=== PATIENT | female | born 1980 | race African-American/Black ===

== ENCOUNTER 2019-04-22 15:26 | Inpatient (IN) | payer OTHER ==
[2019-04-22 20:43] VITALS: BMI 27.1
--- NOTE | 2019-04-22 22:00 | HP ---
CIWA Score - Admission Criteria [facility] Guidelines: Admission for Medically Managed Detox: Requires at least one of the followin. CIWA greater than 12 2. Seizures within the past 24 hours 3. Delirium tremens within the past 24 hours 4. Hallucinations within the past 24 hours 5. Acute intervention needed for co occurring medical disorder 6. Acute intervention needed for co occurring psychiatric disorder 7. Severe withdrawal that cannot be handled at a lower level of care (continued vomiting, continued diarrhea, abnormal vital signs) requiring intravenous medication and/or fluids 8. Admission ROS S - HPI Chief Complaint: alcohol and marijuana rehabilitation Allergies/Adverse Reactions: Allergies Allergy/AdvReac Type Severity Reaction Status Date / Time Fish Containing Products Allergy Intermediate Hives Verified 04/22/19 20:37 History of Present Illness: 38 yo female, homeless, with hx of alcohol, moly and cannabis dependence is here seeking rehabilitation, patient reports completed detox two weeks ago in [place]. PMHX: anemia. Psych: depression. Denies SI/HI. Reports remote hx of ETOH blackouts with last episode two weeks ago. Exam Limitations: No Limitations - Ebola screening Have you traveled outside of the country in the last 21 days: No (N) Have you had contact with anyone from an Ebola affected area: No Do you have a fever: No - Review of Systems Constitutional: Weakness, Unintentional Wgt. Loss EENT: reports: No Symptoms Reported Respiratory: reports: No Symptoms reported Cardiac: reports: No Symptoms Reported GI: reports: No Symptoms Reported : reports: No Symptoms Reported Musculoskeletal: reports: No Symptoms Reported Integumentary: reports: Other (boil on left under arm) Neuro: reports: No Symptoms reported Endocrine: reports: Increased Thirst Hematology: reports: Anemia Psychiatric: reports: Depressed (, brother and father) Other Systems: Reviewed and Negative Patient History - Patient Medical History Hx Anemia: Yes Hx Asthma: No Hx Chronic Obstructive Pulmonary Disease (COPD): No Hx Cancer: No Hx Cardiac Disorders: No Hx Congestive Heart Failure: No Hx Hypertension: No Hx Hypercholesterolemia: No Hx Pacemaker: No HX Cerebrovascular Accident: No Hx Seizures: No Hx Dementia: No Hx Diabetes: No Hx Gastrointestinal Disorders: No Hx Liver Disease: No Hx Genitourinary Disorders: No Hx Sexually Transmitted Disorders: No Hx Renal Disease (ESRD): No Hx Thyroid Disease: No Hx Human Immunodeficiency Virus (HIV): No Hx Hepatitis C: No Hx Depression: Yes Hx Suicide Attempt: No Hx Bipolar Disorder: No Hx Schizophrenia: No - Patient Surgical History Past Surgical History: No - PPD History Previous Implant?: No PPD to be Administered?: Yes - Reproductive History Patient is a Female of Child Bearing Age (11 -55 yrs old): Yes Last Menstrual Period: 04/20/19 Patient : No - Smoking Cessation Smoking history: Current every day smoker Have you smoked in the past 12 months: Yes Aproximately how many cigarettes per day: 60 Hx Chewing Tobacco Use: No Initiated information on smoking cessation: Yes 'Breaking Loose' booklet given: 04/22/19 - Substance & Tx. History Hx Alcohol Use: Yes Hx Substance Use: Yes Substance Use Type: Alcohol, Marijuana Hx Substance Use Treatment: Yes - Substances abused Alcohol Substance route: Oral Frequency: Daily Amount used: 1 liter of Hennesy/day Age of first use: 22 Date of last use: 04/20/19 Marijuana/Hashish Substance route: Smoking Frequency: Daily Amount used: $60 Age of first use: 18 Date of last use: 04/20/19 Other Other (specify): moly Substance route: Oral Frequency: Daily Amount used: $25 Age of first use: 37 Date of last use: 04/22/19 Family Disease History - Family Disease History Family Disease History: Other: Father (, margi ) Admission [facility] - Vital Signs Vital Signs: Vital Signs - 24 hr 04/22/19 20:39 Temperature 97.8 F Pulse Rate 89 Respiratory 18 Rate Blood Pressure 120/86 - Physical General Appearance: Yes: Disheveled, Anxious HEENTM: Yes: EOMI, Hearing grossly Normal, Normal ENT Inspection, Normocephalic , Normal Voice, PRINCE, Pharynx Normal, Tm's normal, Other (poor dentation) Respiratory: Yes: Chest Non-Tender, Lungs Clear, Normal Breath Sounds, No Respiratory Distress, No Accessory Muscle Use Neck: Yes: Within Normal Limits Breast: Yes: Within Normal Limits Cardiology: Yes: Regular Rhythm, Regular Rate Abdominal: Yes: Normal Bowel Sounds, Non Tender, Flat, Soft Genitourinary: Yes: Within Normal Limits Back: Yes: Normal Inspection Musculoskeletal: Yes: full range of Motion, Gait Steady, Pelvis Stable Extremities: Yes: Normal Capillary Refill, Normal Inspection, Normal Range of Motion, Non-Tender Neurological: Yes: book jogger II-XII NML intact, Fully Oriented, Alert, Motor Strength 5/5, Depressed Affect Integumentary: Yes: Normal Color, Dry, Warm Lymphatic: Yes: Within Normal Limits - Diagnostic (1) Uncomplicated alcohol dependence Current Visit: Yes Status: Acute (2) Marijuana dependence Current Visit: Yes Status: Acute (3) Anemia Current Visit: Yes Status: Chronic Qualifiers: Anemia type: unspecified type Qualified Code(s): D64.9 - Anemia, unspecified (4) Depression Current Visit: Yes Status: Acute Qualifiers: Depression Type: unspecified Qualified Code(s): F32.9 - Major depressive disorder, single episode, unspecified Comment: on seroquel Breathalyzer - Breathalyzer Breathalyzer: 0 Urine Drug Screen - Test Device Lot number: [id number] Expiration date: 07/03/20 - Control Is test valid?: Yes - Results Drug screen NEGATIVE: No Urine drug screen results: THC-Marijuana Inpatient Rehab Admission - Rehab Decision to Admit Inpatient rehab admission?: Yes - Initial Determination Are CD services needed?: Yes Free of communicable disease: Yes Not in need of hospitalization: Yes - Rehab Admission Criteria Previous failed treatment: Yes Poor recovery environment: Yes Comorbidities: Yes Lacks judgement: Yes Patient is meeting Inpatient Rehab admission criteria:: Yes
[2019-04-22] MEDS ORDERED: MAGNESIUM HYDROX 2400MG/30ML ORAL SUSPENSION 30 ML CUP PO PRN (22:07)
[2019-04-22] MEDS ORDERED: MENTHOL/PHENOL 1 EACH UD MM PRN (22:07)
[2019-04-22] MEDS ORDERED: LOPERAMIDE HCL 2 MG CAPSULE PO PRN (22:07)
[2019-04-22] MEDS ORDERED: NICOTINE POLACRILEX 4 MG GUM BC PRN (22:07)
[2019-04-22] MEDS ORDERED: P-EPHED 60MG/TRIPROLIDI 2.5MG TABLET PO PRN (22:07)
[2019-04-22] MEDS ORDERED: MAGNESIUM CITRATE 300 ML BOTTLE PO PRN (22:07)
[2019-04-22] MEDS ORDERED: MAG HYDROX/AL HYDROX/SIMETH 30 ML UNIT-DOSE CUP PO PRN (22:07)
[2019-04-22] MEDS ORDERED: ACETAMINOPHEN 325 MG TABLET (FP) PO PRN (22:07)
[2019-04-22] MEDS ORDERED: guaiFENesin 200 MG/10 ML 10 ML UNIT-DOSE CUPS PO PRN (22:07)
[2019-04-22] MEDS ORDERED: TUBERCULIN PPD 5 TU/0.1ML VIAL ID ONE ×2 (23:35→23:41)
[2019-04-23 05:53] LABS: EPI CELLS 6.1 /HPF (0-5/HPF); HYALINE CASTS 9 /lpf (0-8); URINE APPEARANCE TURBID; URINE BACTERIA 64.5 /hpf (NEGATIVE); URINE BILIRUBIN NEGATIVE (NEGATIVE); URINE COLOR YELLOW; URINE GLUCOSE (UA) NEGATIVE (NEGATIVE); URINE KETONE NEGATIVE (NEGATIVE); URINE LEUK ESTERASE 1+ (NEGATIVE); URINE NITRITE NEGATIVE (NEGATIVE); URINE PROTEIN 1+ (NEGATIVE); URINE WBC 14 /hpf (0-5)
[2019-04-23 06:28] LABS: URINE RBC 163.4 /hpf (0-4); YEAST NEGATIVE (NEGATIVE)
--- NOTE | 2019-04-23 10:27 | CONSULT ---
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 This is patient's first admission to rehab at [facility]. Patient admitted to for alcohol and christa dependence. Substance Abuse History: Smoking Cessation. Smoking history: Current every day smoker. Have you smoked in the past 12 months: Yes. Aproximately how many cigarettes per day: 60. Hx Chewing Tobacco Use: No. Initiated information on smoking cessation: Yes. 'Breaking Loose' booklet given: 04/22/19. - Substance & Tx. History. Hx Alcohol Use: Yes. Hx Substance Use: Yes. Substance Use Type : Alcohol, Marijuana. Hx Substance Use Treatment: Yes. - Substances abused. * * Alcohol. Substance route: Oral. Frequency: Daily. Amount used: 1 liter of Hennesy/day. Age of first use: 22. Date of last use: 04/20/19. Marijuana/ Hashish. Substance route: Smoking. Frequency: Daily. Amount used: $60. Age of first use: 18. Date of last use: 04/20/19. Other. Other (specify): moly. Substance route: Oral. Frequency: Daily. Amount used: $25. Age of first use: 37. Date of last use: 04/22/19 Medical History: anemia Psychiatric History: Patient's first psychiatric contact was last month while at [facility] in [place]. States she was prescribed seroquel 150mg for mood stabilization and insomnia but has not accepted medication since discharge from rehab two weeks ago. Patient presents as guarded , tearful and sad. She recently lost her job and place of residence. She denies thoughts or urges to hurt self or others. Mentions her two children as are her protective factors. Patient agreeable in resuming seroquel. Physical/Sexual Abuse/Trauma History: denies. Mental Status Exam - Mental Status Exam Alert and Oriented to: Time, Place, Person Cognitive Function: Good Patient Appearance: Well Groomed Mood: Sad Affect: Mood Congruent Patient Behavior: Guarded, Cooperative Speech Pattern: Clear Voice Loudness: Moderately Soft/Quiet Thought Process: Goal Oriented Thought Disorder: Not Present Hallucinations: Denies Suicidal Ideation: Denies Homicidal Ideation: Denies Insight/Judgement: Poor Sleep: Poorly Appetite: Fair Muscle strength/Tone: Normal Gait/Station: Normal Psychiatric Findings - Problem List ([place] 1, 2,3) (1) Depressive disorder Current Visit: Yes Status: Acute (2) Marijuana dependence Current Visit: Yes Status: Acute (3) Uncomplicated alcohol dependence Current Visit: Yes Status: Acute - Initial Treatment Plan Initial Treatment Plan: Psychoieducation provided. Detoxification in progress. Will order Seroquel 100mg HS. Benefits and side effects discussed. Verbal consent given.
[2019-04-23] MEDS: NICOTINE 21 MG/24 HOURS TOPICAL PATCH TD SCH (10:28)
[2019-04-23] MEDS: PRENATAL VITAMINS W/ FOLIC ACID TABLET (FP) PO SCH (10:28)
[2019-04-23 11:39] LABS: HEMATOCRIT 36.8 % (32.4-45.2); HEMOGLOBIN 11.9 GM/dL (10.7-15.3); MCH 27.2 pg (25.7-33.7); MCHC 32.3 g/dl (32.0-36.0); MEAN CELL VOLUME 84.2 fl (80-96); MEAN PLT VOLUME 6.9 fl (7.5-11.1); PLATELET COUNT 326 K/MM3 (134-434); RBC 4.37 M/mm3 (3.60-5.2); RDW 14.1 % (11.6-15.6); WHITE BLOOD COUNT 3.5 K/mm3 (4.0-10.0)
[2019-04-23 11:53] LABS: ALBUMIN 3.3 g/dl (3.4-5.0); BILIRUBIN,TOTAL 0.2 mg/dL (0.2-1); BLOOD UREA NITROGEN 7.4 mg/dL (7-18); CALCIUM 8.6 mg/dL (8.5-10.1); CREATININE 0.8 mg/dL (0.55-1.3); POTASSIUM 3.9 mmol/L (3.5-5.1); TOT PROT 7.7 g/dl (6.4-8.2)
[2019-04-23] MEDS: QUEtiapine FUMARATE 100 MG TABLET (FP) PO SCH (23:24)
[2019-04-23] MEDS: THIAMINE HCL 100 MG TABLET (FP) PO SCH (23:24)
[2019-04-24] MEDS: NICOTINE 21 MG/24 HOURS TOPICAL PATCH TD SCH (09:49)
[2019-04-24] MEDS: PRENATAL VITAMINS W/ FOLIC ACID TABLET (FP) PO SCH (09:49)
[2019-04-24] MEDS: hydrOXYzine PAMOATE 50 MG CAPSULE (FP) PO PRN ×2 (11:09→21:14)
[2019-04-24] MEDS: THIAMINE HCL 100 MG TABLET (FP) PO SCH (21:12)
[2019-04-24] MEDS: QUEtiapine FUMARATE 100 MG TABLET (FP) PO SCH (21:12)
[2019-04-24] MEDS: MELATONIN 5 MG TABLETS PO PRN (21:13)
[2019-04-25] MEDS ORDERED: PT OWN MED DRAWER 7, Y5N ONE (08:17)
[2019-04-25] MEDS: NICOTINE 21 MG/24 HOURS TOPICAL PATCH TD SCH (09:42)
[2019-04-25] MEDS: PRENATAL VITAMINS W/ FOLIC ACID TABLET (FP) PO SCH (09:42)
--- NOTE | 2019-04-25 13:01 | EKG ---
Test Reason : Blood Pressure : / mmHG Vent. Rate : 066 BPM Atrial Rate : 066 BPM P-R Int : 188 ms QRS Dur : 084 ms QT Int : 390 ms P-R-T Axes : 056 023 032 degrees QTc Int : 408 ms NORMAL SINUS RHYTHM WITH SINUS ARRHYTHMIA NORMAL ECG NO PREVIOUS ECGS AVAILABLE Confirmed by JULIETA MENDOZA MD ([id number]) on 04/25/2019 1:01:27 PM Referred By: Jc JUAREZ Confirmed By:JULIETA MENDOZA MD
[2019-04-25] MEDS: hydrOXYzine PAMOATE 50 MG CAPSULE (FP) PO PRN (18:31)
[2019-04-25] MEDS: QUEtiapine FUMARATE 100 MG TABLET (FP) PO SCH (21:17)
[2019-04-25] MEDS: MELATONIN 5 MG TABLETS PO PRN (21:17)
[2019-04-25] MEDS: THIAMINE HCL 100 MG TABLET (FP) PO SCH (21:18)
[2019-04-26] MEDS: PRENATAL VITAMINS W/ FOLIC ACID TABLET (FP) PO SCH (09:31)
[2019-04-26] MEDS: hydrOXYzine PAMOATE 50 MG CAPSULE (FP) PO PRN ×2 (09:32→21:20)
[2019-04-26] MEDS: NICOTINE 21 MG/24 HOURS TOPICAL PATCH TD SCH (09:33)
--- NOTE | 2019-04-26 09:36 | PN ---
[facility] Progress Note Note: Laboratory Tests 04/22/19 04/23/19 04/23/19 21:51 04:00 09:20 WBC 3.5 L RBC 4.37 Hgb 11.9 Hct 36.8 MCV 84.2 MCH 27.2 MCHC 32.3 RDW 14.1 Plt Count 326 MPV 6.9 L Sodium Potassium Chloride Carbon Dioxide Anion Gap BUN Creatinine Est GFR (CKD-EPI)AfAm Est GFR (CKD-EPI)NonAf Random Glucose Calcium Total Bilirubin AST ALT Alkaline Phosphatase Total Protein Albumin Urine Color Yellow Urine Appearance Turbid Urine pH 5.0 Ur Specific [place] 1.017 Urine Protein 1+ H Urine Glucose (UA) Negative Urine Ketones Negative Urine Blood 3+ H Urine Nitrite Negative Urine Bilirubin Negative Urine Urobilinogen 1.0 Ur Leukocyte Esterase 1+ H Urine WBC (Auto) 14 Urine RBC (Auto) 163.4 Urine Casts (Auto) 9 U Epithel Cells (Auto) 6.1 Urine Bacteria (Auto) 64.5 Urine Yeast (Auto) Negative POC Urine HCG, Qual Negative RPR Titer 04/23/19 04/23/19 09:20 09:20 WBC RBC Hgb Hct MCV MCH MCHC RDW Plt Count MPV Sodium 138 Potassium 3.9 Chloride 107 Carbon Dioxide 27 Anion Gap 4 L BUN 7.4 Creatinine 0.8 Est GFR (CKD-EPI)AfAm 109.16 Est GFR (CKD-EPI)NonAf 94.18 Random Glucose 82 Calcium 8.6 Total Bilirubin 0.2 AST 12 L ALT 20 Alkaline Phosphatase 68 Total Protein 7.7 Albumin 3.3 L Urine Color Urine Appearance Urine pH Ur Specific [place] Urine Protein Urine Glucose (UA) Urine Ketones Urine Blood Urine Nitrite Urine Bilirubin Urine Urobilinogen Ur Leukocyte Esterase Urine WBC (Auto) Urine RBC (Auto) Urine Casts (Auto) U Epithel Cells (Auto) Urine Bacteria (Auto) Urine Yeast (Auto) POC Urine HCG, Qual RPR Titer Nonreactive LABS NOTED. INCREASE PO FLUIDS
[2019-04-26] MEDS: IBUPROFEN 400 MG TABLET (FP) PO PRN (17:56)
[2019-04-26] MEDS: QUEtiapine FUMARATE 100 MG TABLET (FP) PO SCH (21:18)
[2019-04-26] MEDS: THIAMINE HCL 100 MG TABLET (FP) PO SCH (21:18)
[2019-04-26] MEDS: MELATONIN 5 MG TABLETS PO PRN (21:18)
[2019-04-26] MEDS ORDERED: PT OWN MED DRAWER 7, Y5N ONE (23:21)
[2019-04-26] MEDS ORDERED: INSULIN (NOVOLOG) ASPART 100 UNITS/ML 10ML VIAL ONE (23:24)
[2019-04-26] MEDS ORDERED: TUBERCULIN PPD 5 TU/0.1ML VIAL ID ONE (23:25)
[2019-04-27] MEDS: IBUPROFEN 400 MG TABLET (FP) PO PRN (08:54)
[2019-04-27] MEDS: hydrOXYzine PAMOATE 50 MG CAPSULE (FP) PO PRN ×2 (08:57→21:12)
[2019-04-27] MEDS: PRENATAL VITAMINS W/ FOLIC ACID TABLET (FP) PO SCH (09:27)
[2019-04-27] MEDS: NICOTINE 21 MG/24 HOURS TOPICAL PATCH TD SCH (09:27)
--- NOTE | 2019-04-27 11:37 | PN ---
S Progress Note (SOAP) Subjective: Patient with abscess in right axillae. Objective: Right axilla swollen, draining clear-yellow fluid. Tender to the touch. 04/27/19 11:35 Assessment: Right axillae abscess. 04/27/19 11:36 Plan: Bactrim ordered. Culture ordered. Dressing changes ordered.
[2019-04-27] MEDS: BACITRACIN 15 GM TUBE TOPICAL OINTMENT TP SCH (15:03)
[2019-04-27] MEDS ORDERED: IBUPROFEN 600 MG TABLET (FP) PO PRN (16:06)
[2019-04-27] MEDS: COLLOIDAL OATMEAL 1 BAR EACH TP PRN (16:31)
[2019-04-27] MEDS: CEPHALEXIN MONOHYDRATE 500 MG CAPSULE (UD) PO SCH (21:12)
[2019-04-27] MEDS: MELATONIN 5 MG TABLETS PO PRN (21:12)
[2019-04-27] MEDS: QUEtiapine FUMARATE 100 MG TABLET (FP) PO SCH (21:12)
[2019-04-27] MEDS: THIAMINE HCL 100 MG TABLET (FP) PO SCH (21:12)
[2019-04-28] MEDS ORDERED: PT OWN MED DRAWER 7, Y5N ONE (08:45)
[2019-04-28] MEDS: hydrOXYzine PAMOATE 50 MG CAPSULE (FP) PO PRN (08:46)
[2019-04-28] MEDS: PRENATAL VITAMINS W/ FOLIC ACID TABLET (FP) PO SCH (09:36)
[2019-04-28] MEDS: CEPHALEXIN MONOHYDRATE 500 MG CAPSULE (UD) PO SCH ×2 (09:36→21:09)
[2019-04-28] MEDS: NICOTINE 21 MG/24 HOURS TOPICAL PATCH TD SCH (09:36)
[2019-04-28] MEDS: BACITRACIN 15 GM TUBE TOPICAL OINTMENT TP SCH (09:37)
[2019-04-28] MEDS ORDERED: SULFAMETHOXAZOLE/TRIMETHOPRIM 800MG/160MG D.S. TABLET PO SCH (10:00)
--- NOTE | 2019-04-28 17:36 | PN ---
Psychiatric Progress Note Vital Signs: Vital Signs Period Temp Pulse Resp BP Sys/Palmer Pulse Ox Last 24 Hr 97.2 F 76 18-18 102/71 Date of Session: 04/28/19 Chief Complaint:: " I still feel sad and irritable" HPI: Patient presents with a sad affect. Reports missing her son and is contemplating if she should sign out AMA. ROS: Patient coherent, alert and oriented X3. Current Medications: Active Medications Generic Name Dose Route Start Last Admin Trade Name Freq PRN Reason Stop Dose Admin Acetaminophen 650 mg 04/22/19 22:07 Tylenol - PO Q4H PRN FEVER Al Hydroxide/Mg Hydroxide 30 ml 04/22/19 22:07 04/26/19 07:24 Mylanta Oral Suspension - PO 30 ml Q6H PRN Administration DYSPEPSIA Bacitracin 1 applic 04/27/19 11:45 04/28/19 09:37 Bacitracin - TP Not Given DAILY FRANK Cephalexin HCl 500 mg 04/27/19 22:00 04/28/19 09:36 Keflex - PO 500 mg BID FRANK Administration Colloidal Oatmeal 1 applic 04/25/19 20:59 04/27/19 16:31 Aveeno Soap - TP 1 bar DAILY PRN Administration HYGEINE Eucalyptus/Menthol/Phenol/Sorbitol 1 each 04/22/19 22:07 Cepastat Lozenge - MM Q4H PRN SORE THROAT Guaifenesin 10 ml 04/22/19 22:07 Robitussin - PO Q6H PRN COUGH Hydroxyzine Pamoate 50 mg 04/22/19 22:07 04/28/19 08:46 Vistaril - PO 50 mg Q4H PRN Administration AGITATION Ibuprofen 600 mg 04/27/19 16:08 Motrin - PO Q4H PRN PAIN LEVEL 4 - 6 Loperamide HCl 4 mg 04/22/19 22:07 Imodium - PO Q6H PRN DIARRHEA Magnesium Citrate 300 ml 04/22/19 22:07 Citroma - PO Q48H PRN CONSTIPATION Magnesium Hydroxide 30 ml 04/22/19 22:07 Milk Of Magnesia - PO DAILY PRN CONSTIPATION Melatonin 5 mg 04/22/19 22:00 04/27/19 21:12 Melatonin PO 5 mg HS PRN Administration INSOMNIA Nicotine 21 mg 04/23/19 10:00 04/28/19 09:36 Nicoderm Patch - TD Not Given DAILY FRANK Nicotine Polacrilex 4 mg 04/22/19 22:07 Nicorette Gum - BC Q2H PRN NICOTINE REPLACEMENT RX Multivit/Folic Acid/Iron 1 tab 04/23/19 10:00 04/28/19 09:36 Vitamins (Sjr) - PO 1 tab DAILY FRANK Administration Pseudoephedrine/Triprolidine 1 combo 04/22/19 22:07 Actifed - PO TID PRN NASAL CONGESTION Quetiapine Fumarate 150 mg 04/28/19 22:00 Seroquel - PO HS FRANK Thiamine HCl 100 mg 04/23/19 22:00 04/27/19 21:12 Vitamin B1 - PO 100 mg HS FRANK Administration Medication(s) Change(s): Yes. Current Side Effect: No Lab tests ordered: No Lab tests reviewed: Yes Provider note:: Patient reports poor sleep, sadness and irritability. Patient tearful. States rehab is not helpful and she is now looking forward [facility]. Patient also reports missing her son and states she has yet to get in contact with him. Will d/c seroquel 100mg and melatonin 5mg. Will order Seroquel 150mg HS + Melatonin 10mg. Benefits and side effects disucssed. Verbal consent given. Total face to face time:: 25 Mental Status Exam - Mental Status Exam Alert and Oriented to: Time, Place, Person Cognitive Function: Good Patient Appearance: Well Groomed Mood: Sad Affect: Mood Congruent Patient Behavior: Cooperative Speech Pattern: Appropriate Voice Loudness: Moderately Soft/Quiet Thought Process: Goal Oriented Thought Disorder: Not Present Hallucinations: Denies Suicidal Ideation: Denies Homicidal Ideation: Denies Insight/Judgement: Poor Sleep: Poorly Appetite: Fair Muscle strength/Tone: Normal Gait/Station: Normal Psychiatric Treatment Plan - Problem List (1) Depressive disorder Comment: .. (2) Marijuana dependence Comment: .. (3) Uncomplicated alcohol dependence Comment: ..
[2019-04-28] MEDS: MELATONIN 5 MG TABLETS PO PRN (21:09)
[2019-04-28] MEDS: THIAMINE HCL 100 MG TABLET (FP) PO SCH (21:09)
[2019-04-28] MEDS: QUEtiapine FUMARATE 50 MG TABLET PO SCH (21:10)
[2019-04-29] MEDS: BACITRACIN 15 GM TUBE TOPICAL OINTMENT TP SCH (09:40)
[2019-04-29] MEDS: CEPHALEXIN MONOHYDRATE 500 MG CAPSULE (UD) PO SCH ×2 (09:40→21:26)
[2019-04-29] MEDS: PRENATAL VITAMINS W/ FOLIC ACID TABLET (FP) PO SCH (09:40)
[2019-04-29] MEDS: hydrOXYzine PAMOATE 50 MG CAPSULE (FP) PO PRN (09:40)
[2019-04-29] MEDS: NICOTINE 21 MG/24 HOURS TOPICAL PATCH TD SCH (09:40)
--- NOTE | 2019-04-29 13:56 | PN ---
Psychiatric Progress Note Vital Signs: Vital Signs Period Temp Pulse Resp BP Sys/Palmer Pulse Ox Last 24 Hr 97.7 F 67-75 18-18 93-93/64-68 Date of Session: 04/29/19 Chief Complaint:: " I still can't sleep." HPI: Patient continues to report difficulty sleeping at night. ROS: Patient is coherent, alert and oriented X3. Current Medications: Active Medications Generic Name Dose Route Start Last Admin Trade Name Freq PRN Reason Stop Dose Admin Acetaminophen 650 mg 04/22/19 22:07 Tylenol - PO Q4H PRN FEVER Al Hydroxide/Mg Hydroxide 30 ml 04/22/19 22:07 04/26/19 07:24 Mylanta Oral Suspension - PO 30 ml Q6H PRN Administration DYSPEPSIA Bacitracin 1 applic 04/27/19 11:45 04/29/19 09:40 Bacitracin - TP 1 applic DAILY FRANK Administration Cephalexin HCl 500 mg 04/27/19 22:00 04/29/19 09:40 Keflex - PO 500 mg BID FRANK Administration Colloidal Oatmeal 1 applic 04/25/19 20:59 04/27/19 16:31 Aveeno Soap - TP 1 bar DAILY PRN Administration HYGEINE Eucalyptus/Menthol/Phenol/Sorbitol 1 each 04/22/19 22:07 Cepastat Lozenge - MM Q4H PRN SORE THROAT Guaifenesin 10 ml 04/22/19 22:07 Robitussin - PO Q6H PRN COUGH Hydroxyzine Pamoate 50 mg 04/22/19 22:07 04/29/19 09:40 Vistaril - PO 50 mg Q4H PRN Administration AGITATION Ibuprofen 600 mg 04/27/19 16:08 Motrin - PO Q4H PRN PAIN LEVEL 4 - 6 Loperamide HCl 4 mg 04/22/19 22:07 Imodium - PO Q6H PRN DIARRHEA Magnesium Citrate 300 ml 04/22/19 22:07 Citroma - PO Q48H PRN CONSTIPATION Magnesium Hydroxide 30 ml 04/22/19 22:07 Milk Of Magnesia - PO DAILY PRN CONSTIPATION Melatonin 10 mg 04/28/19 22:00 04/28/19 21:09 Melatonin PO 10 mg HS PRN Administration INSOMNIA Nicotine 21 mg 04/23/19 10:00 04/29/19 09:40 Nicoderm Patch - TD Not Given DAILY FRANK Nicotine Polacrilex 4 mg 04/22/19 22:07 Nicorette Gum - BC Q2H PRN NICOTINE REPLACEMENT RX Multivit/Folic Acid/Iron 1 tab 04/23/19 10:00 04/29/19 09:40 Vitamins (Sjr) - PO 1 tab DAILY FRANK Administration Pseudoephedrine/Triprolidine 1 combo 04/22/19 22:07 Actifed - PO TID PRN NASAL CONGESTION Quetiapine Fumarate 150 mg 04/28/19 22:00 04/28/19 21:10 Seroquel - PO 150 mg HS FRANK Administration Thiamine HCl 100 mg 04/23/19 22:00 04/28/19 21:09 Vitamin B1 - PO 100 mg HS FRANK Administration Medication(s) Change(s): Yes. Current Side Effect: No Lab tests ordered: No Lab tests reviewed: Yes Provider note:: Patient continues to report difficulty sleeping despite accepting seroquel 150mg HS. Patient requesting benadryl 50mg for insomnia as she reports favorable effects from accepting it in the past. Will order benadryl 50mg prn for insomnia. Benefits and side effects discussed. Verbal consent given. Total face to face time:: 25 Mental Status Exam - Mental Status Exam Alert and Oriented to: Time, Place, Person Cognitive Function: Good Patient Appearance: Well Groomed Mood: Sad Affect: Mood Congruent Patient Behavior: Cooperative Speech Pattern: Appropriate Voice Loudness: Normal Thought Process: Goal Oriented Thought Disorder: Not Present Hallucinations: Denies Suicidal Ideation: Denies Homicidal Ideation: Denies Insight/Judgement: Poor Sleep: Poorly Appetite: Fair Muscle strength/Tone: Normal Gait/Station: Normal Psychiatric Treatment Plan - Problem List (1) Depressive disorder Comment: .. (2) Marijuana dependence Comment: .. (3) Uncomplicated alcohol dependence Comment: .. (4) Insomnia Comment: ..
--- NOTE | 2019-04-29 14:29 | PN ---
[facility] Progress Note Note: WOUND CULTURE REVIEWED: Microbiology 04/28/19 09:50 Axilla/Armpit - Right Gram Stain - Final 04/28/19 09:50 Axilla/Armpit - Right Wound Culture - Preliminary NO GROWTH OBTAINED AFTER 24 HOURS INCUBATION, REINCUBATED.
[2019-04-29] MEDS: THIAMINE HCL 100 MG TABLET (FP) PO SCH (21:25)
[2019-04-29] MEDS: diphenhydrAMINE HCL 50 MG CAPSULE PO PRN (21:26)
[2019-04-29] MEDS: QUEtiapine FUMARATE 50 MG TABLET PO SCH (21:26)
[2019-04-29] MEDS ORDERED: PT OWN MED DRAWER 7, Y5N ONE (22:06)
[2019-04-30] MEDS ORDERED: diphenhydrAMINE HCL 25 MG CAPSULE (FP) PO ONE (09:24)
[2019-04-30] MEDS: CEPHALEXIN MONOHYDRATE 500 MG CAPSULE (UD) PO SCH ×2 (09:25→23:22)
[2019-04-30] MEDS: PRENATAL VITAMINS W/ FOLIC ACID TABLET (FP) PO SCH (09:26)
[2019-04-30] MEDS: hydrOXYzine PAMOATE 50 MG CAPSULE (FP) PO PRN (09:26)
[2019-04-30] MEDS: NICOTINE 21 MG/24 HOURS TOPICAL PATCH TD SCH (09:27)
[2019-04-30] MEDS: BACITRACIN 15 GM TUBE TOPICAL OINTMENT TP SCH (11:14)
--- NOTE | 2019-04-30 17:51 | PN ---
Psychiatric Progress Note Vital Signs: Vital Signs Period Temp Pulse Resp BP Sys/Palmer Pulse Ox Last 24 Hr 97.5 F 61-85 17-18 103-114/68-72 Date of Session: 04/30/19 Chief Complaint:: Request to be seen by counselor for paranoia and disorganized behavior HPI: Patient calm and cooperative. ROS: Patient coherent, alert and oriented X3. Patient admitted to for for alcohol dependence. Current Medications: Active Medications Generic Name Dose Route Start Last Admin Trade Name Freq PRN Reason Stop Dose Admin Acetaminophen 650 mg 04/22/19 22:07 Tylenol - PO Q4H PRN FEVER Al Hydroxide/Mg Hydroxide 30 ml 04/22/19 22:07 04/26/19 07:24 Mylanta Oral Suspension - PO 30 ml Q6H PRN Administration DYSPEPSIA Bacitracin 1 applic 04/27/19 11:45 04/30/19 11:14 Bacitracin - TP 1 applic DAILY FRANK Administration Cephalexin HCl 500 mg 04/27/19 22:00 04/30/19 09:25 Keflex - PO 500 mg BID FRANK Administration Colloidal Oatmeal 1 applic 04/25/19 20:59 04/27/19 16:31 Aveeno Soap - TP 1 bar DAILY PRN Administration HYGEINE Diphenhydramine HCl 50 mg 04/29/19 22:00 04/29/19 21:26 Benadryl - PO 50 mg HS PRN Administration INSOMNIA Eucalyptus/Menthol/Phenol/Sorbitol 1 each 04/22/19 22:07 Cepastat Lozenge - MM Q4H PRN SORE THROAT Guaifenesin 10 ml 04/22/19 22:07 Robitussin - PO Q6H PRN COUGH Hydroxyzine Pamoate 50 mg 04/22/19 22:07 04/30/19 09:26 Vistaril - PO 50 mg Q4H PRN Administration AGITATION Ibuprofen 600 mg 04/27/19 16:08 Motrin - PO Q4H PRN PAIN LEVEL 4 - 6 Loperamide HCl 4 mg 04/22/19 22:07 Imodium - PO Q6H PRN DIARRHEA Magnesium Citrate 300 ml 04/22/19 22:07 Citroma - PO Q48H PRN CONSTIPATION Magnesium Hydroxide 30 ml 04/22/19 22:07 Milk Of Magnesia - PO DAILY PRN CONSTIPATION Melatonin 10 mg 04/28/19 22:00 04/28/19 21:09 Melatonin PO 10 mg HS PRN Administration INSOMNIA Nicotine 21 mg 04/23/19 10:00 04/30/19 09:27 Nicoderm Patch - TD Not Given DAILY FRANK Nicotine Polacrilex 4 mg 04/22/19 22:07 Nicorette Gum - BC Q2H PRN NICOTINE REPLACEMENT RX Multivit/Folic Acid/Iron 1 tab 04/23/19 10:00 04/30/19 09:26 Vitamins (Sjr) - PO 1 tab DAILY FRANK Administration Pseudoephedrine/Triprolidine 1 combo 04/22/19 22:07 Actifed - PO TID PRN NASAL CONGESTION Quetiapine Fumarate 150 mg 04/28/19 22:00 04/29/19 21:26 Seroquel - PO 150 mg HS FRANK Administration Thiamine HCl 100 mg 04/23/19 22:00 04/29/19 21:25 Vitamin B1 - PO 100 mg HS FRANK Administration Medication(s) Change(s): Yes. Current Side Effect: No Lab tests ordered: No Lab tests reviewed: Yes Provider note:: Patient observed interacting appropriately with her peers while sitting in the living room. Upon approach patient presented as appropriate, calm , coherent, and cooperative. Patient continues to report dissatisfaction towards her treatment on the unit. State she is attending groups daily but has not learned much from attending this program. Patient reports dissatisfaction from having to speak to her son while the counselor was present. Reports dysphoria due to lack of employment, missing her son, and having to rehab from alcohol and cocaine use. Patient noted to be irritable when speaking about staff but was redirectable. At present, patient is not disorganized, paranoid, or suspicious of staff/ peers although patient does admit to having difficulty controlling her emotions and has been aggressive in the past. Stated to medical underwriter, " I can be aggressive but i am trying to get better. It's hard being in here." She reports h/o five years of incarceration secondary to assault charges. Patient agreeble to an increase in seroquel for mood stabilization. Will d/c seroquel 150mg HS. Will order seroquel 200mg HS + 100 daily. Benefits and side effects discussed. Verbal consent given. Total face to face time:: 25 Mental Status Exam - Mental Status Exam Alert and Oriented to: Time, Place, Person Cognitive Function: Good Patient Appearance: Well Groomed Mood: Sad Affect: Appropriate Patient Behavior: Crying (Tearful when discussing her son. States she misses her son. ), Cooperative Speech Pattern: Appropriate Voice Loudness: Normal Thought Process: Goal Oriented Thought Disorder: Not Present Hallucinations: Denies Suicidal Ideation: Denies Homicidal Ideation: Denies Insight/Judgement: Poor Sleep: Fair Appetite: Fair Muscle strength/Tone: Normal Gait/Station: Normal Psychiatric Treatment Plan - Problem List (1) Depressive disorder Current Visit: Yes (2) Marijuana dependence Current Visit: Yes (3) Uncomplicated alcohol dependence Current Visit: Yes (4) Insomnia Current Visit: Yes (5) Mood disorder Current Visit: Yes Comment: suspected.
[2019-04-30] MEDS: IBUPROFEN 600 MG TABLET (FP) PO PRN (19:32)
[2019-04-30] MEDS: THIAMINE HCL 100 MG TABLET (FP) PO SCH (21:09)
[2019-04-30] MEDS: QUEtiapine FUMARATE 200 MG TABLET PO SCH (21:11)
[2019-04-30] MEDS: diphenhydrAMINE HCL 50 MG CAPSULE PO PRN (21:13)
--- NOTE | 2019-04-30 21:48 | PN ---
S Progress Note (SOAP) Subjective: C/o pain in both axillae. States (L) arm now has an open area caused by the deodorant. States uses a special deodorant at home. Objective: Papular lesion (L) upper axillae area at hair line. Tender to touch. (R) axillae w/ purulent discharge from inner aspect of axillae. Tender to touch. CBC WBC 3.5 K/mm3 (4.0-10.0) L 04/23/19 09:20 RBC 4.37 M/mm3 (3.60-5.2) 04/23/19 09:20 Hgb 11.9 GM/dL (10.7-15.3) 04/23/19 09:20 Hct 36.8 % (32.4-45.2) 04/23/19 09:20 MCV 84.2 fl (80-96) 04/23/19 09:20 MCH 27.2 pg (25.7-33.7) 04/23/19 09:20 MCHC 32.3 g/dl (32.0-36.0) 04/23/19 09:20 RDW 14.1 % (11.6-15.6) 04/23/19 09:20 Plt Count 326 K/MM3 (134-434) 04/23/19 09:20 MPV 6.9 fl (7.5-11.1) L 04/23/19 09:20 Microbiology 04/28/19 09:50 Axilla/Armpit - Right Gram Stain - Final 04/28/19 09:50 Axilla/Armpit - Right Wound Culture - Final NO GROWTH OF AEROBIC ORGANISMS AFTER 48 HOURS INCUBATION Labs reviewed. Assessment: (R) axillae abscess (L) axillae folliculitis Early cannabis remission Early alcohol remission. Plan: Increase Keflex to QID. Warm compress selam axillae QID and prn Instructed to avoid use of deodorants.
[2019-04-30] MEDS: MELATONIN 5 MG TABLETS PO PRN (22:13)
[2019-05-01] MEDS: CEPHALEXIN MONOHYDRATE 500 MG CAPSULE (UD) PO SCH ×4 (06:29→23:17)
[2019-05-01] MEDS ORDERED: PT OWN MED DRAWER 7, Y5N ONE (08:24)
[2019-05-01] MEDS: QUEtiapine FUMARATE 100 MG TABLET (FP) PO SCH (09:13)
[2019-05-01] MEDS: PRENATAL VITAMINS W/ FOLIC ACID TABLET (FP) PO SCH (09:13)
[2019-05-01] MEDS: NICOTINE 21 MG/24 HOURS TOPICAL PATCH TD SCH (09:14)
[2019-05-01] MEDS: BACITRACIN 15 GM TUBE TOPICAL OINTMENT TP SCH (09:14)
--- NOTE | 2019-05-01 17:32 | PN ---
[facility] Progress Note Note: Patient is referred for concerns of worsening right axillae abscess. On exam, the site has 2 small openings with small amount of drainage, no odor. The site is tender to touch. Wound culture noted to be negative for growth, she remains on Keflex. Reassurance given, continue current antibiotics.
[2019-05-01] MEDS: IBUPROFEN 600 MG TABLET (FP) PO PRN (17:34)
[2019-05-01] MEDS: QUEtiapine FUMARATE 200 MG TABLET PO SCH (21:54)
[2019-05-01] MEDS: THIAMINE HCL 100 MG TABLET (FP) PO SCH (21:54)
[2019-05-01] MEDS: MELATONIN 5 MG TABLETS PO PRN (21:56)
[2019-05-01] MEDS: diphenhydrAMINE HCL 50 MG CAPSULE PO PRN (21:56)
[2019-05-02] MEDS: CEPHALEXIN MONOHYDRATE 500 MG CAPSULE (UD) PO SCH ×4 (06:23→23:29)
[2019-05-02] MEDS: hydrOXYzine PAMOATE 50 MG CAPSULE (FP) PO PRN ×2 (06:23→13:03)
[2019-05-02] MEDS: NICOTINE 21 MG/24 HOURS TOPICAL PATCH TD SCH (09:48)
[2019-05-02] MEDS: PRENATAL VITAMINS W/ FOLIC ACID TABLET (FP) PO SCH (09:48)
[2019-05-02] MEDS: QUEtiapine FUMARATE 100 MG TABLET (FP) PO SCH (09:48)
[2019-05-02] MEDS: BACITRACIN 15 GM TUBE TOPICAL OINTMENT TP SCH (09:49)
[2019-05-02] MEDS ORDERED: PT OWN MED DRAWER 7, Y5N ONE (18:13)
[2019-05-02] MEDS: diphenhydrAMINE HCL 50 MG CAPSULE PO PRN (21:17)
[2019-05-02] MEDS: THIAMINE HCL 100 MG TABLET (FP) PO SCH (21:17)
[2019-05-02] MEDS: QUEtiapine FUMARATE 200 MG TABLET PO SCH (21:17)
[2019-05-02] MEDS: MELATONIN 5 MG TABLETS PO PRN (21:18)
[2019-05-03] MEDS: CEPHALEXIN MONOHYDRATE 500 MG CAPSULE (UD) PO SCH ×3 (06:52→17:25)
[2019-05-03] MEDS: IBUPROFEN 600 MG TABLET (FP) PO PRN (06:52)
[2019-05-03] MEDS: PRENATAL VITAMINS W/ FOLIC ACID TABLET (FP) PO SCH (09:52)
[2019-05-03] MEDS: QUEtiapine FUMARATE 100 MG TABLET (FP) PO SCH (09:52)
[2019-05-03] MEDS: NICOTINE 21 MG/24 HOURS TOPICAL PATCH TD SCH (09:52)
[2019-05-03] MEDS: BACITRACIN 15 GM TUBE TOPICAL OINTMENT TP SCH (09:53)
[2019-05-03] MEDS: hydrOXYzine PAMOATE 50 MG CAPSULE (FP) PO PRN (10:18)
--- NOTE | 2019-05-03 11:58 | PN ---
[facility] Progress Note Note: PATIENTS SCHEDULED FOR DISCHARGE FROM REHAB TOMORROW MORNING FOR ETOH AND MARIJUANA DEPENDENCE. PATIENT SCHEDULED TO CONTINUED TREATMENT AT [facility] 05/04/19. PATIENT REPORTS SHE ACCOMPLISHED ALL REHAB GOALS AND ENCOURAGED TO CONTINUE WITH TREATMENT TO PREVENT RELAPSE. UA REVIEWED WITH PATIENT, WHICH WAS COLLECTED WHEN SHE HAD MENSTRUAL PERIOD. PATIENT DENIES BURNING UPON URINATION, URGENCY AND FREQUENCY. PATIENT CONTINUES ON KEFLEX TREATMENT. PRESCRIPTION SENT TO [facility] TO COMPLETE COURSE OF TREATMENT. PATIENT IS MEDICALLY STABLE AT THIS TIME AND DENIES SI/HI. Laboratory Tests 04/22/19 04/23/19 04/23/19 21:51 04:00 09:20 WBC 3.5 L RBC 4.37 Hgb 11.9 Hct 36.8 MCV 84.2 MCH 27.2 MCHC 32.3 RDW 14.1 Plt Count 326 MPV 6.9 L Sodium Potassium Chloride Carbon Dioxide Anion Gap BUN Creatinine Est GFR (CKD-EPI)AfAm Est GFR (CKD-EPI)NonAf Random Glucose Calcium Total Bilirubin AST ALT Alkaline Phosphatase Total Protein Albumin Urine Color Yellow Urine Appearance Turbid Urine pH 5.0 Ur Specific [place] 1.017 Urine Protein 1+ H Urine Glucose (UA) Negative Urine Ketones Negative Urine Blood 3+ H Urine Nitrite Negative Urine Bilirubin Negative Urine Urobilinogen 1.0 Ur Leukocyte Esterase 1+ H Urine WBC (Auto) 14 Urine RBC (Auto) 163.4 Urine Casts (Auto) 9 U Epithel Cells (Auto) 6.1 Urine Bacteria (Auto) 64.5 Urine Yeast (Auto) Negative POC Urine HCG, Qual Negative RPR Titer 04/23/19 04/23/19 09:20 09:20 WBC RBC Hgb Hct MCV MCH MCHC RDW Plt Count MPV Sodium 138 Potassium 3.9 Chloride 107 Carbon Dioxide 27 Anion Gap 4 L BUN 7.4 Creatinine 0.8 Est GFR (CKD-EPI)AfAm 109.16 Est GFR (CKD-EPI)NonAf 94.18 Random Glucose 82 Calcium 8.6 Total Bilirubin 0.2 AST 12 L ALT 20 Alkaline Phosphatase 68 Total Protein 7.7 Albumin 3.3 L Urine Color Urine Appearance Urine pH Ur Specific [place] Urine Protein Urine Glucose (UA) Urine Ketones Urine Blood Urine Nitrite Urine Bilirubin Urine Urobilinogen Ur Leukocyte Esterase Urine WBC (Auto) Urine RBC (Auto) Urine Casts (Auto) U Epithel Cells (Auto) Urine Bacteria (Auto) Urine Yeast (Auto) POC Urine HCG, Qual RPR Titer Nonreactive Vital Signs Temperature 97.8 F 05/02/19 07:12 Pulse Rate 73 05/02/19 07:12 Respiratory Rate 18 05/03/19 07:04 Blood Pressure 103/68 05/02/19 07:12 O2 Sat by Pulse Oximetry (%) Ambulatory Orders Cephalexin [Keflex] 500 mg PO Q6H #28 capsule 05/03/19
[2019-05-03] MEDS: THIAMINE HCL 100 MG TABLET (FP) PO SCH (21:07)
[2019-05-03] MEDS: MELATONIN 5 MG TABLETS PO PRN (21:07)
[2019-05-03] MEDS: QUEtiapine FUMARATE 200 MG TABLET PO SCH (21:09)
[2019-05-03] MEDS: diphenhydrAMINE HCL 50 MG CAPSULE PO PRN (21:09)
[2019-05-04] MEDS: CEPHALEXIN MONOHYDRATE 500 MG CAPSULE (UD) PO SCH ×2 (00:38→07:38)
--- NOTE | 2019-05-04 06:19 | PN ---
[facility] Progress Note Note: Patient is scheduled for discharge today. Script for 30 days supply of medication(Seroquel 100 mg/day & 200 mg/hs) is electronically transmitted to [facility] at [address] [place], [place] [id number]
[2019-05-04 07:13] VITALS: BP 116/74; PULSE 87; TEMP 97.7
[2019-05-04] MEDS ORDERED: PT OWN MED DRAWER 7, Y5N ONE (08:53)
[2019-05-04] MEDS: PRENATAL VITAMINS W/ FOLIC ACID TABLET (FP) PO SCH (09:47)
[2019-05-04] MEDS: COLLOIDAL OATMEAL 1 BAR EACH TP PRN (09:47)
[2019-05-04] MEDS: QUEtiapine FUMARATE 100 MG TABLET (FP) PO SCH (09:47)
[2019-05-04] MEDS: NICOTINE 21 MG/24 HOURS TOPICAL PATCH TD SCH (09:48)
[2019-05-04] MEDS: BACITRACIN 15 GM TUBE TOPICAL OINTMENT TP SCH (09:48)
== END 2019-05-04 09:49 | disposition home or self-care (01) | DRG 772 ==
LOC: YASAS 15:26 → Y3E 23:06
PROVIDERS: ADMIT Neuromusculoskeletal Medicine & OMM; ATTEND Neuromusculoskeletal Medicine & OMM
PROC: HZ42ZZZ Group Counseling for Substance Abuse Treatment, Cognitive-Behavioral (ICD-10-PCS; principal; 2019-04-22)
DX: F10.20 Alcohol dependence, uncomplicated (principal); F12.20 Cannabis dependence, uncomplicated; F17.210 Nicotine dependence, cigarettes, uncomplicated; F32.9 Major depressive disorder, single episode, unspecified; F39 Unspecified mood [affective] disorder; G47.00 Insomnia, unspecified; D64.9 Anemia, unspecified; L02.411 Cutaneous abscess of right axilla; L73.8 Other specified follicular disorders; Z91.013 Allergy to seafood
CPT/HCPCS: 36415; 80053; 81003; 81025; 85027; 86593; 87070; 87205; 93005; 93010